=== PATIENT | female | born 1995 | race Caucasian/White ===

== ENCOUNTER 2017-06-28 13:05 | Emergency (ER) | payer OTHER ==
[~2017-06-28] VITALS: Ht 175.3 cm; Wt 75.0 kg
[2017-06-28 13:06] VITALS: BP 108/68
[2017-06-28] MEDS ORDERED: VALI5TAB PO (13:41)
[2017-06-28] MEDS ORDERED: NAPR500T PO (13:41)
== END 2017-06-28 14:07 | disposition home or self-care (01) ==
LOC: M ED 13:05
DX: M54.41 Lumbago with sciatica, right side (principal)

== ENCOUNTER 2017-09-10 13:56 | Emergency (ER) | payer OTHER ==
[2017-09-10] MEDS: diazePAM 5 MG TAB PO (16:04)
[2017-09-10] MEDS: KETOROLAC 60 MG/2 ML VIAL (J1885) IM (16:05)
== END 2017-09-10 19:11 | disposition home or self-care (01) ==
LOC: M ED 13:56
DX: M51.36 Other intervertebral disc degeneration, lumbar region (principal); M48.061 Spinal stenosis, lumbar region without neurogenic claudication; M51.06 Intervertebral disc disorders with myelopathy, lumbar region; M54.30 Sciatica, unspecified side
CPT/HCPCS: J1885

== ENCOUNTER → 2017-11-03 | Outpatient (CLI) | payer OTHER ==
[2017-11-03 15:10] LABS: BASO # 0.1 10^3/uL (0.0-0.2); BASO % 0.7 % (0.0-1.0); EOS # 0.2 10^3/uL (0.0-0.50); EOS % 2.4 % (0.0-3.0); HEMOGLOBIN 11.9 g/dl (12.0-15.5); IMMATURE GRANULOCYTE % 0.1 % (0-3.0); LYMPH # 2.5 10^3/uL (1.5-6.5); LYMPH % 33.5 % (24.0-44.0); MEAN CORPUSCULAR HEMOGLOBIN 25.5 pg (27.0-33.0); MEAN CORPUSCULAR HGB CONC 31.3 g/dl (32.0-36.5); MEAN CORPUSCULAR VOLUME 81.5 fl (80.0-96.0); MONO # 0.4 10^3/uL (0.0-0.8); MONO % 4.7 % (0.0-5.0); NEUTROPHILS # 4.3 10^3/uL (1.8-7.7); NEUTROPHILS % 58.6 % (36.0-66.0); PLATELET COUNT, AUTOMATED 343 10^3/uL (150-450); RED BLOOD COUNT 4.66 10^6/uL (4.00-5.40); RED CELL DISTRIBUTION WIDTH 14.4 % (11.5-14.5); WHITE BLOOD COUNT 7.4 10^3/uL (4.0-10.0)
[2017-11-03 15:20] LABS: INR 0.92; PROTHROMBIN TIME 12.4 SECONDS (12.4-14.5)
[2017-11-03 15:21] LABS: PARTIAL THROMBOPLASTIN TIME 28.1 SECONDS (26.8-37.9)
[2017-11-03 15:30] LABS: COLLAGEN EPINEPHRINE 135 SECONDS (74-162)
[2017-11-03 15:47] LABS: ALBUMIN 4.2 GM/DL (3.2-5.2); ALBUMIN/GLOBULIN RATIO 1.05 (1.00-1.93); ALKALINE PHOSPHATASE 92 U/L (45-117); ALT/SGPT 17 U/L (12-78); ANION GAP 7 MEQ/L (8-16); AST/SGOT 18 U/L (7-37); BILIRUBIN,TOTAL 0.2 MG/DL (0.2-1.0); BLOOD UREA NITROGEN 9 MG/DL (7-18); CALCIUM LEVEL 8.9 MG/DL (8.5-10.1); CARBON DIOXIDE LEVEL 26 MEQ/L (21-32); CHLORIDE LEVEL 109 MEQ/L (98-107); CREATININE FOR GFR 0.79 MG/DL (0.55-1.30); GLOMERULAR FILTRATION RATE > 60.0 (>60); GLUCOSE, FASTING 99 MG/DL (70-100); POTASSIUM SERUM 4.3 MEQ/L (3.5-5.1); SODIUM LEVEL 142 MEQ/L (136-145); TOTAL PROTEIN 8.2 GM/DL (6.4-8.2)
== END ==
LOC: M LAB 14:16
DX: Z01.818 Encounter for other preprocedural examination (principal)
CPT/HCPCS: 71046

== ENCOUNTER 2017-11-14 06:24 | Inpatient (IN) | payer OTHER ==
[2017-11-14 06:46] LABS: CONTROL LINE UCG INT CTR LINE PRESENT; URINE PREG TEST NEGATIVE (NEGATIVE)
[2017-11-14] MEDS: LR 1,000 ML IV ×2 (07:03→11:15)
[2017-11-14] MEDS ORDERED: ROCURONIUM BROMIDE 50 MG/5 ML VIAL As Ordered (08:07)
[2017-11-14] MEDS ORDERED: PROPOFOL 200 MG/20 ML VIAL As Ordered (08:07)
[2017-11-14] MEDS ORDERED: MIDAZOLAM INJ 2 MG/2 ML VIAL (J2250) As Ordered (08:07)
[2017-11-14] MEDS ORDERED: fentaNYL 250 MCG/5 ML INJECTION (J3010) As Ordered (08:07)
[2017-11-14] MEDS ORDERED: LIDOCAINE 2% INJ 100 MG/5 ML SDV (FOR ANES.) As Ordered (08:07)
[2017-11-14] MEDS ORDERED: dexameTHASONE 4 MG/ML 1ML VIAL (J1100) As Ordered (08:07)
[2017-11-14] MEDS ORDERED: PHENYLephrine HCL 500 MCG/5 ML (100MCG/ML) SYRINGE (J2370) As Ordered (08:19)
[2017-11-14] MEDS: THROMBIN SOLN 20,000 UNITS KIT As Ordered (08:58)
[2017-11-14] MEDS ORDERED: ePHEDrine SULFATE 25 MG/5 ML(5MG/ML) SYRINGE As Ordered (09:04)
[2017-11-14] MEDS ORDERED: ONDANSETRON 4MG/2ML VIAL (J2405) As Ordered (10:09)
[2017-11-14] MEDS: BACITRACIN PWD 50,000 UNITS VIAL As Ordered (10:20)
[2017-11-14] MEDS: methylPREDNISolone SUSP 40 MG/ML (DEPO-medrol) VIAL (J1030) As Ordered (10:20)
[2017-11-14] MEDS ORDERED: fentaNYL 100 MCG/2 ML INJECTION (J3010) As Ordered (10:42)
[2017-11-14] MEDS: fentaNYL 100 MCG/2 ML INJECTION (J3010) IV ×8 (10:50→12:05)
[2017-11-14] MEDS ORDERED: METOCLOPRAMIDE INJ 10MG/2ML VIAL (J2765) IV (11:15)
[2017-11-14] MEDS: MEPERIDINE INJ 25 MG/ML VIAL (J2175) IV ×2 (11:30→11:35)
[2017-11-14] MEDS ORDERED: ACETAMINOPHEN TAB 650MG DOSE (2X325MG) PO (11:30)
[2017-11-14] MEDS: ONDANSETRON 4MG/2ML VIAL (J2405) IV ×2 (11:35→16:10)
[2017-11-14] MEDS: PERCOCET 5MG/325MG TAB PO ×2 (11:50→12:20)
[2017-11-14] MEDS: KCL 20MEQ IN D5/0.45NS 1000ML 1,000 ML IV ×2 (13:10→21:32)
[2017-11-14] MEDS: NORCO, ANEXSIA 5/325MG TABLET (HYDROcodone/ACETAMINOPHEN) PO ×2 (13:11→19:46)
[2017-11-14] MEDS: MORPHINE 4 MG/ML 1ML VIAL/SYRINGE (J2270) IV (14:25)
[2017-11-14] MEDS: ceFAZolin SOD 1 GM in D5W MINI-BAG PLUS 50 ML IV ×2 (15:12→19:47)
[2017-11-15] MEDS: NORCO, ANEXSIA 5/325MG TABLET (HYDROcodone/ACETAMINOPHEN) PO ×3 (01:53→14:54)
[2017-11-15] MEDS: ceFAZolin SOD 1 GM in D5W MINI-BAG PLUS 50 ML IV (02:39)
[2017-11-15] MEDS: KCL 20MEQ IN D5/0.45NS 1000ML 1,000 ML IV ×2 (02:41→11:08)
== END 2017-11-15 17:10 | disposition home or self-care (01) | DRG 516 ==
LOC: M OR 06:24 → M MS5PR 13:06
PROC: 01NB0ZZ Release Lumbar Nerve, Open Approach (ICD-10-PCS; principal; 2017-11-14 07:29)
PROC: 01NR0ZZ Release Sacral Nerve, Open Approach (ICD-10-PCS; 2017-11-14 07:29)
DX: M48.062 Spinal stenosis, lumbar region with neurogenic claudication (principal); M47.16 Other spondylosis with myelopathy, lumbar region; M47.812 Spondylosis without myelopathy or radiculopathy, cervical region; M46.1 Sacroiliitis, not elsewhere classified

== ENCOUNTER → 2018-09-29 | Outpatient (REF) | payer OTHER ==
[~2018-09-29] MED LIST: CIPR-250 PO; NAPR-50 PO; NORC1TAB4 PO; NORCOTAB PO; PRED20TA PO; VALI5TAB PO
[2018-09-29 21:24] LABS: CHLAMYDIA DNA AMPLIFICATION NEGATIVE (NEGATIVE); GC DNA AMPLIFICATION NEGATIVE (NEGATIVE)
== END ==
LOC: M SFHCLERA 13:40
PROVIDERS: ATTEND Nurse Practitioner Family
DX: N89.8 Other specified noninflammatory disorders of vagina (principal)

== ENCOUNTER 2019-02-27 09:50 | Emergency (ER) | payer OTHER ==
[~2019-02-27] VITALS: Ht 175.3 cm; Wt 75.0 kg
[~2019-02-27 09:50] MED LIST changes: +HYDR-3715 PO; -NAPR-50 PO; +NAPR-837 PO; -NORC1TAB4 PO; +NORC1TAB7 PO; -NORCOTAB PO
[2019-02-27] MEDS ORDERED: IBUPROFEN 800 MG TAB PO ONE (11:15)
[2019-02-27] MEDS ORDERED: LIDOCAINE 5% (LIDODERM) PATCH TD ONE (11:15)
--- NOTE | 2019-02-27 14:16 | REPVR ---
EXAM: MR Lumbar Spine Without Contrast. EXAM DATE/TIME: 02/27/2019 11:46 AM CLINICAL HISTORY: 23 years old, female; Numbness and weakness; Prior surgery; Surgery date: 6+ months; Surgery type: Laminectomy; Additional info: Numbness, weakness right leg, HX laminectomy TECHNIQUE: Imaging protocol: Multiplanar magnetic resonance images of the lumbar spine without intravenous contrast. COMPARISON: MRI-Spine, L.S. without con 09/10/2017 4:49 PM FINDINGS: Vertebral body heights are intact. Alignment is maintained. The conus is unremarkable in appearance, with its tip at the L1 level. There are fairly similar degrees of disc desiccation indicating intervertebral disc degeneration. The visualized abdominal structures appear unremarkable. L1-2: No significant disc displacement. L2-3: No significant disc displacement. L3-4: Similar broad-based central protrusion superimposed on a small diffuse disc bulge leading to similar, very mild bilateral neural foraminal narrowing without significant spinal stenosis. There is again small fluid in the facet joints. L4-5: Similar diffuse bulge with a central annular tear leading to similar, very mild right and mild left neural foraminal narrowing with very mild narrowing of the left lateral recess, without significant central canal stenosis. There is again small fluid in the facet joints. L5-S1: Interval right-sided laminotomy. Previous central disc extrusion is now a smaller broad-based central protrusion, superimposed on similar diffuse bulge. There is similar, mild bilateral neural foraminal narrowing with decrease, now mild to moderate bilateral lateral recess narrowing, without significant central canal stenosis. There is some heterogeneous material along the right lateral and posterolateral aspects of the thecal sac, which could represent scarring. Any additional scarring is difficult to evaluate without contrast. There is again small fluid in the facet joints. If surgery is considered, recommend level confirmation. IMPRESSION: Multilevel disc desiccation indicating intervertebral disk degeneration with disc displacements as described. Interval right-sided laminotomy at L5-S1 since 09/10/17, with decreased displacement at this level, potentially with some scarring along the right aspect of the thecal sac. The other discs appear fairly similar. Electronically signed by: Randolph Peña On 02/27/2019 14:15:47 PM
[2019-02-27 15:02] VITALS: BP 130/76
[2019-02-27] MEDS ORDERED: **NOTE PATIENT COMMENT** MISC XX SCH (21:00)
--- NOTE | 2019-02-28 10:59 | ED PDOC ---
Post-Departure Follow-Up ft ramu cornelius faxed formal report of mri ls spine for fu Jackie Mackey MD Feb 28, 2019 10:59
== END 2019-02-27 15:01 | disposition home or self-care (01) ==
LOC: M ED 09:50
DX: M51.36 Other intervertebral disc degeneration, lumbar region (principal); M48.061 Spinal stenosis, lumbar region without neurogenic claudication; M54.5 Low back pain; M19.90 Unspecified osteoarthritis, unspecified site; G89.29 Other chronic pain; M54.9 Dorsalgia, unspecified; F41.9 Anxiety disorder, unspecified; J45.909 Unspecified asthma, uncomplicated

== ENCOUNTER → 2019-04-24 | Outpatient (REF) | payer OTHER | LOC: M SFHCLERA 13:43 | PROVIDERS: ATTEND Nurse Practitioner Family | DX: J02.9 Acute pharyngitis, unspecified (principal) ==

== ENCOUNTER → 2019-08-29 | Outpatient (REF) | payer OTHER | LOC: M SFHCLERA 20:55 | PROVIDERS: ATTEND Physician Assistant | DX: R50.9 Fever, unspecified (principal) ==

== ENCOUNTER → 2021-02-11 | Outpatient (CLI) | payer OTHER, SELFPAY ==
[~2021-02-11] MED LIST changes: +ISOVUE-370 76% 100ML VIAL As Ordered ONE
== END ==
LOC: M RADPRO 12:16
PROVIDERS: ATTEND Obstetrics & Gynecology
DX: N97.9 Female infertility, unspecified (principal); Z53.8 Procedure and treatment not carried out for other reasons

== ENCOUNTER → 2021-03-09 | Outpatient (CLI) | payer OTHER ==
--- NOTE | 2021-03-09 13:10 | REP ---
INDICATION: INFERTILITY. COMPARISON: None. TECHNIQUE: Cervix was catheterized by the referring clinician, who also injected contrast. I performed fluoroscopy. FINDINGS: No persistent filling defect is seen in the endometrial cavity. No contour abnormality is seen. The fallopian tubes opacify well and are not dilated. There is bilateral free intraperitoneal spillage of contrast material indicating bilateral fallopian tube patency. IMPRESSION: Bilateral fallopian tube patency. Fluoroscopy time 0.5 minutes. <Electronically signed by Romeo De La Cruz > 03/09/21 [id number]
== END ==
LOC: M RADPRO 12:02
PROVIDERS: ATTEND Obstetrics & Gynecology
DX: N97.9 Female infertility, unspecified (principal)
CPT/HCPCS: 58340; 74740; Q9967

== ENCOUNTER → 2021-04-30 | Outpatient (CLI) | payer OTHER ==
[~2021-04-30] MED LIST changes: -ISOVUE-370 76% 100ML VIAL As Ordered ONE
--- NOTE | 2021-05-02 07:21 | REP ---
INDICATION: FEMALE INFERTILITY COMPARISON: None. TECHNIQUE: Transabdominal pelvic ultrasound followed by transvaginal examination for better evaluation of the endometrium and adnexa with color Doppler evaluation of the ovaries. FINDINGS: Bladder is unremarkable and measures 9.6 x 3.0 x 7.6 cm. Normal retroflexed uterus measures 7.7 x 4.5 x 5.9 cm. The endometrial complex measures 3.0 mm thickness. Few incidental subcentimeter nabothian cysts in the lower uterine segment noted. Bilateral ovaries are normal in appearance and vascularity without evidence for torsion. Multiple bilateral follicles measuring up to 8.4 mm noted bilaterally. Right ovary measures 3.2 x 2.3 x 2.1 cm; R I = 0.67. Left ovary measures 2.9 x 2.8 x 2.5 cm; R I = 0.61. No pelvic fluid or adnexal mass lesion. IMPRESSION: Relatively normal pelvic ultrasound as described above. <Electronically signed by Arsalan Jacob > 05/02/21 [id number]
== END ==
LOC: M WHC 13:01
PROVIDERS: ATTEND Obstetrics & Gynecology
DX: N97.9 Female infertility, unspecified (principal)

== ENCOUNTER → 2021-11-29 | Outpatient (CLI) | payer OTHER | LOC: M PLALAB 10:01 | PROVIDERS: ATTEND Advanced Practice Midwife | DX: O20.0 Threatened abortion (principal) ==

== ENCOUNTER → 2021-12-01 | Outpatient (CLI) | payer OTHER | LOC: M PLALAB 09:17 | PROVIDERS: ATTEND Advanced Practice Midwife | DX: O20.0 Threatened abortion (principal); Z3A.00 Weeks of gestation of pregnancy not specified ==

== ENCOUNTER → 2021-12-08 | Outpatient (CLI) | payer OTHER | LOC: M PLALAB 11:52 | PROVIDERS: ATTEND Advanced Practice Midwife | DX: O20.9 Hemorrhage in early pregnancy, unspecified (principal) ==

== ENCOUNTER → 2021-12-10 | Outpatient (CLI) | payer OTHER | LOC: M PLALAB 12:25 | PROVIDERS: ATTEND Advanced Practice Midwife | DX: O20.9 Hemorrhage in early pregnancy, unspecified (principal) ==

== ENCOUNTER → 2021-12-22 | Outpatient (CLI) | payer OTHER | LOC: M WHC 10:10 | PROVIDERS: ATTEND Advanced Practice Midwife | DX: O20.9 Hemorrhage in early pregnancy, unspecified (principal) ==

== ENCOUNTER → 2022-01-17 | Outpatient (CLI) | payer OTHER ==
[2022-01-17 13:27] LABS: HEMATOCRIT 34.7 % (36.0-47.0); HEMOGLOBIN 10.9 g/dl (12.0-15.5); MEAN CORPUSCULAR HEMOGLOBIN 24.4 pg (27.0-33.0); MEAN CORPUSCULAR HGB CONC 31.4 g/dl (32.0-36.5); MEAN CORPUSCULAR VOLUME 77.8 fl (80.0-96.0); PLATELET COUNT, AUTOMATED 293 10^3/uL (150-450); RED BLOOD COUNT 4.46 10^6/uL (4.00-5.40); WHITE BLOOD COUNT 10.4 10^3/uL (4.0-10.0)
[2022-01-17 15:06] LABS: GC DNA AMPLIFICATION NEGATIVE (NEGATIVE)
[2022-01-17 19:20] LABS: HEPATITIS C VIRUS ABY INDEX 0.1 INDEX (<0.8); HIV 1&2 SCREEN CENTAUR NEGATIVE (NEGATIVE)
== END ==
LOC: M PLALAB 11:47
PROVIDERS: ATTEND Obstetrics & Gynecology
DX: Z36.9 Encounter for antenatal screening, unspecified (principal); Z3A.09 9 weeks gestation of pregnancy

== ENCOUNTER → 2022-01-20 | Outpatient (CLI) | payer OTHER ==
[2022-01-20 17:46] LABS: PERCENT SATURATION 6.2 % (13.2-45.0)
[2022-01-26 17:10] LABS: TRANSFERRIN 431 mg/dL (192-364)
== END ==
LOC: M PLALAB 14:44
PROVIDERS: ATTEND Obstetrics & Gynecology
DX: D64.9 Anemia, unspecified (principal)

== ENCOUNTER 2022-01-21 17:12 | Emergency (ER) | payer OTHER ==
[~2022-01-21] VITALS: Ht 175.3 cm; Wt 96.8 kg
[2022-01-21 18:15] LABS: BASO # 0.1 10^3/uL (0.0-0.2); BASO % 0.5 % (0.0-1.0); EOS # 0.3 10^3/uL (0.0-0.5); EOS % 2.1 % (0.0-3.0); HEMATOCRIT 34.3 % (36.0-47.0); HEMOGLOBIN 11.1 g/dl (12.0-15.5); LYMPH # 2.5 10^3/uL (1.5-5.0); LYMPH % 20.9 % (24.0-44.0); MEAN CORPUSCULAR HEMOGLOBIN 25.3 pg (27.0-33.0); MEAN CORPUSCULAR HGB CONC 32.4 g/dl (32.0-36.5); MEAN CORPUSCULAR VOLUME 78.1 fl (80.0-96.0); MONO # 0.6 10^3/uL (0.0-0.8); MONO % 4.7 % (2.0-8.0); NEUTROPHILS # 8.5 10^3/uL (1.5-8.5); NEUTROPHILS % 71.5 % (36.0-66.0); PLATELET COUNT, AUTOMATED 307 10^3/uL (150-450); RED BLOOD COUNT 4.39 10^6/uL (4.00-5.40); WHITE BLOOD COUNT 11.9 10^3/uL (4.0-10.0)
[2022-01-21 18:30] LABS: APPEARANCE, URINE HAZY (CLEAR); BACTERIA, URINE AUTO NEGATIVE (NEGATIVE); BILIRUBIN, URINE AUTO NEGATIVE (NEGATIVE); BLOOD, URINE BLOOD 3+ (NEGATIVE); COLOR, URINE YELLOW (YELLOW); GLUCOSE, URINE (UA) AUTO NEGATIVE (NEGATIVE); KETONE, URINE AUTO TRACE mg/dL (NEGATIVE); LEUKOCYTE ESTERASE, URINE AUTO 2+ (NEGATIVE); MUCUS, URINE SMALL (NEGATIVE); NITRITE, URINE AUTO NEGATIVE (NEGATIVE); PROTEIN, URINE AUTO 1+ mg/dL (NEGATIVE); RBC, URINE AUTO 8 /HPF (0-3); SPECIFIC GRAVITY URINE AUTO 1.028 (1.002-1.035); SQUAMOUS EPITHELIAL CELL UR AU 14 /HPF (0-6); UROBILINOGEN, URINE AUTO 0.2 mg/dL (0.0-2.0); WBC, URINE AUTO 25 /HPF (0-3)
[2022-01-21 18:33] LABS: BLOOD UREA NITROGEN 9 MG/DL (7-18); CALCIUM LEVEL 9.5 MG/DL (8.5-10.1); CARBON DIOXIDE LEVEL 23 MEQ/L (21-32); CHLORIDE LEVEL 107 MEQ/L (98-107); CREATININE FOR GFR 0.71 MG/DL (0.55-1.30); GLOMERULAR FILTRATION RATE > 60.0 (>60); GLUCOSE, FASTING 99 MG/DL (70-100); POTASSIUM SERUM 3.9 MEQ/L (3.5-5.1); SODIUM LEVEL 140 MEQ/L (136-145)
[2022-01-21 21:21] LABS: HCG, SERUM QUANTITATIVE 156592 MIU/ML
[2022-01-21 22:49] VITALS: BP 143/84
== END 2022-01-21 23:40 | disposition home or self-care (01) ==
LOC: M ED 17:12
DX: O26.852 Spotting complicating pregnancy, second trimester (principal); N93.9 Abnormal uterine and vaginal bleeding, unspecified; Z3A.14 14 weeks gestation of pregnancy

== ENCOUNTER 2022-01-29 09:31 | Emergency (ER) | payer OTHER ==
[~2022-01-29] VITALS: Ht 175.3 cm; Wt 95.5 kg
[2022-01-29] MEDS ORDERED: MULTTAB20 PO (09:37)
[2022-01-29 10:30] LABS: BASO # 0.1 10^3/uL (0.0-0.2); BASO % 0.4 % (0.0-1.0); EOS # 0.3 10^3/uL (0.0-0.5); HEMATOCRIT 36.5 % (36.0-47.0); LYMPH # 1.9 10^3/uL (1.5-5.0); LYMPH % 13.1 % (24.0-44.0); MEAN CORPUSCULAR HEMOGLOBIN 25.2 pg (27.0-33.0); MEAN CORPUSCULAR HGB CONC 32.9 g/dl (32.0-36.5); MEAN CORPUSCULAR VOLUME 76.5 fl (80.0-96.0); MONO # 0.6 10^3/uL (0.0-0.8); NEUTROPHILS # 11.8 10^3/uL (1.5-8.5); PLATELET COUNT, AUTOMATED 292 10^3/uL (150-450); RED BLOOD COUNT 4.77 10^6/uL (4.00-5.40); WHITE BLOOD COUNT 14.8 10^3/uL (4.0-10.0)
[2022-01-29 11:28] VITALS: BP 121/77
== END 2022-01-29 11:33 | disposition home or self-care (01) ==
LOC: M ED 09:31
DX: O46.8X2 Other antepartum hemorrhage, second trimester (principal); O30.042 Twin pregnancy, dichorionic/diamniotic, second trimester; Z3A.14 14 weeks gestation of pregnancy

== ENCOUNTER 2022-01-29 14:53 | Emergency (ER) | payer OTHER ==
[~2022-01-29] VITALS: Ht 175.3 cm; Wt 90.9 kg
[~2022-01-29 14:53] MED LIST changes: +MULTTAB20 PO
[2022-01-29] MEDS ORDERED: MORPHINE 4 MG/ML 1ML VIAL/SYRINGE IV ONE (16:20)
[2022-01-29] MEDS ORDERED: NS 1,000 ML IV ONE (16:20)
[2022-01-29 17:21] LABS: HEMATOCRIT 35.2 % (36.0-47.0); HEMOGLOBIN 11.6 g/dl (12.0-15.5); MEAN CORPUSCULAR HEMOGLOBIN 25.2 pg (27.0-33.0); MEAN CORPUSCULAR VOLUME 76.5 fl (80.0-96.0); PLATELET COUNT, AUTOMATED 260 10^3/uL (150-450); WHITE BLOOD COUNT 16.7 10^3/uL (4.0-10.0)
[2022-01-29 20:14] VITALS: BP 131/77
== END 2022-01-29 20:20 | disposition home or self-care (01) ==
LOC: M ED 14:53
DX: O03.9 Complete or unspecified spontaneous abortion without complication (principal); N39.9 Disorder of urinary system, unspecified
CPT/HCPCS: 76801; 85027; 88305; 96361; 96374; 99284; J2270

== ENCOUNTER → 2022-04-27 | Outpatient (CLI) | payer OTHER | LOC: M PLALAB 13:21 | PROVIDERS: ATTEND Advanced Practice Midwife | DX: O20.0 Threatened abortion (principal); Z3A.00 Weeks of gestation of pregnancy not specified ==

== ENCOUNTER 2022-04-29 21:01 | Emergency (ER) | payer OTHER ==
[~2022-04-29] VITALS: Ht 175.3 cm; Wt 81.8 kg
[2022-04-29 22:36] LABS: BASO # 0.1 10^3/uL (0.0-0.2); BASO % 0.8 % (0.0-1.0); EOS # 0.6 10^3/uL (0.0-0.5); EOS % 6.5 % (0.0-3.0); HEMATOCRIT 36.7 % (36.0-47.0); HEMOGLOBIN 11.3 g/dl (12.0-15.5); LYMPH % 29.9 % (24.0-44.0); MEAN CORPUSCULAR HEMOGLOBIN 24.1 pg (27.0-33.0); MEAN CORPUSCULAR HGB CONC 30.8 g/dl (32.0-36.5); MEAN CORPUSCULAR VOLUME 78.4 fl (80.0-96.0); MONO # 0.6 10^3/uL (0.0-0.8); MONO % 6.2 % (2.0-8.0); NEUTROPHILS # 5.6 10^3/uL (1.5-8.5); NEUTROPHILS % 56.3 % (36.0-66.0); PLATELET COUNT, AUTOMATED 322 10^3/uL (150-450); RED BLOOD COUNT 4.68 10^6/uL (4.00-5.40); WHITE BLOOD COUNT 9.9 10^3/uL (4.0-10.0)
[2022-04-29 23:03] LABS: BLOOD UREA NITROGEN 16 MG/DL (7-18); CALCIUM LEVEL 8.5 MG/DL (8.5-10.1); CARBON DIOXIDE LEVEL 23 MEQ/L (21-32); CHLORIDE LEVEL 107 MEQ/L (98-107); CREATININE FOR GFR 0.85 MG/DL (0.55-1.30); GLOMERULAR FILTRATION RATE > 60.0 (>60); GLUCOSE, FASTING 90 MG/DL (70-100); HCG, SERUM QUANTITATIVE 21 MIU/ML; POTASSIUM SERUM 3.8 MEQ/L (3.5-5.1); SODIUM LEVEL 136 MEQ/L (136-145)
[2022-04-30 02:31] VITALS: BP 125/72
== END 2022-04-30 02:32 | disposition home or self-care (01) ==
LOC: M ED 21:01
DX: O03.9 Complete or unspecified spontaneous abortion without complication (principal); J45.909 Unspecified asthma, uncomplicated; F41.9 Anxiety disorder, unspecified; M54.50 Low back pain, unspecified; Z79.810 Long term (current) use of selective estrogen receptor modulators (SERMs)

== ENCOUNTER → 2022-04-29 | Outpatient (CLI) | payer OTHER | LOC: M PLALAB 11:47 | PROVIDERS: ATTEND Advanced Practice Midwife | DX: O20.0 Threatened abortion (principal) ==

== ENCOUNTER 2022-05-18 07:21 | Emergency (ER) | payer OTHER ==
[~2022-05-18] VITALS: Ht 175.3 cm; Wt 97.6 kg
[2022-05-18] MEDS ORDERED: LIDO1PAD TOP (10:00)
[2022-05-18 10:04] VITALS: BP 113/63
== END 2022-05-18 10:12 | disposition home or self-care (01) ==
LOC: M ED 07:21
DX: M47.816 Spondylosis without myelopathy or radiculopathy, lumbar region (principal); M47.817 Spondylosis without myelopathy or radiculopathy, lumbosacral region; M51.36 Other intervertebral disc degeneration, lumbar region; J45.909 Unspecified asthma, uncomplicated

== ENCOUNTER → 2023-09-02 | Outpatient (REF) | payer OTHER ==
[~2023-09-02] MED LIST changes: +LIDO1PAD TOP
== END ==
LOC: M LAB REF 17:33
PROVIDERS: ATTEND Physician Assistant Medical
DX: J02.9 Acute pharyngitis, unspecified (principal)

== ENCOUNTER → 2024-03-07 | Outpatient (CLI) | payer OTHER ==
[2024-03-07 15:50] LABS: HEMATOCRIT 37.7 % (36.0-47.0); HEMOGLOBIN 11.9 g/dl (12.0-15.5); MEAN CORPUSCULAR HEMOGLOBIN 25.1 pg (27.0-33.0); MEAN CORPUSCULAR HGB CONC 31.6 g/dl (32.0-36.5); MEAN CORPUSCULAR VOLUME 79.5 fl (80.0-96.0); PLATELET COUNT, AUTOMATED 365 10^3/uL (150-450); RED BLOOD COUNT 4.74 10^6/uL (4.00-5.40); WHITE BLOOD COUNT 7.8 10^3/uL (4.0-10.0)
[2024-03-07 15:51] LABS: HEMOGLOBIN A1c 5.2 % (4.0-6.0)
[2024-03-07 16:13] LABS: PROLACTIN 7.23 NG/ML; THYROID STIMULATING HORMONE 2.738 uIU/ML (0.55-4.78)
[2024-03-07 16:16] LABS: HCG, SERUM QUANTITATIVE < 2.6 MIU/ML (<4.2)
[2024-03-07 16:18] LABS: ALBUMIN 3.9 G/DL (3.2-5.2); ALKALINE PHOSPHATASE 78 U/L (46-116); ALT/SGPT 18 U/L (7.0-40); AST/SGOT 12 U/L (<34); BILIRUBIN,TOTAL 0.4 MG/DL (0.3-1.2); BLOOD UREA NITROGEN 12 MG/DL (9-23); CALCIUM LEVEL 9.2 MG/DL (8.5-10.1); CARBON DIOXIDE LEVEL 26 MMOL/L (20-31); CHLORIDE LEVEL 108 MMOL/L (98-107); GLOMERULAR FILTRATION RATE > 60.0 (>60); GLUCOSE, FASTING 76 MG/DL (60-100); POTASSIUM SERUM 4.3 MMOL/L (3.5-5.1); SODIUM LEVEL 139 MMOL/L (136-145); TOTAL PROTEIN 7.7 G/DL (5.7-8.2)
[2024-03-07 16:20] LABS: TESTOSTERONE 26 NG/DL (14-76)
[2024-03-07 16:23] LABS: HEPATITIS B SURFACE ANTIGEN NEGATIVE (NEGATIVE)
[2024-03-07 16:36] LABS: HIV 1&2 SCREEN NEGATIVE (NEGATIVE)
[2024-03-07 16:44] LABS: HEPATITIS C VIRUS ABY INDEX 0.03 INDEX (<0.8)
[2024-03-12 22:23] LABS: ANTI MULLERIAN HORMONE 2.82 ng/mL (0.69-13.39)
== END ==
LOC: M PLALAB 12:26
PROVIDERS: ATTEND Obstetrics & Gynecology Reproductive Endocrinology
DX: Z31.41 Encounter for fertility testing (principal)

== ENCOUNTER 2025-02-22 14:20 | Inpatient (IN) | payer OTHER ==
[~2025-02-22] VITALS: Ht 175.3 cm; Wt 105.1 kg
[2025-02-22] VITALS (26 sets, daily range): BP systolic 121–181; BP diastolic 66–96
[2025-02-22] MEDS ORDERED: VENTAER INH (14:42)
[2025-02-22] MEDS ORDERED: PRENTAB9 PO (14:42)
[2025-02-22] MEDS ORDERED: HOME MED LIST COMPLETE! XX SCH (14:45)
[2025-02-22] MEDS ORDERED: LR 1,000 ML IV SCH (16:45)
[2025-02-22] MEDS ORDERED: CARBOPROST TROMETHAMINE 250 MCG/ML AMP IM PRN (16:45)
[2025-02-22] MEDS ORDERED: TRANEXAMIC ACID INJection 1,000 MG in NS 100 ML IV PRN (16:45)
[2025-02-22] MEDS ORDERED: OXYTOCIN INJ 10UNITS/ML 1ML VIAL IV PRN (16:45)
[2025-02-22] MEDS ORDERED: OXYTOCIN INJ 10UNITS/ML 1ML VIAL IM PRN (16:45)
[2025-02-22] MEDS ORDERED: LIDOCAINE 1% MDV 20 ML VIAL INFIL PRN (16:45)
[2025-02-22] MEDS ORDERED: METHYLERGONOVINE MALEATE 0.2 MG/ML 1 ML VIAL IM PRN (16:45)
[2025-02-22] MEDS ORDERED: OXYTOCIN DRIP 30 UNITS in IV 1 EA IV PRN ×3 (16:45)
[2025-02-22] MEDS: LACTATED RINGER'S 1000 ML IV STA (17:18)
[2025-02-22] MEDS: PENICILLIN G POTASSIUM 5 MU IV 5 MU in DEXTROSE 5% (D5W) MINI-BAG PLU 100 ML IV STA (17:27)
[2025-02-22 17:44] LABS: PLATELET COUNT, AUTOMATED 316 10^3/uL (150-450)
[2025-02-22 18:38] LABS: HIV 1&2 SCREEN NEGATIVE (NEGATIVE)
[2025-02-22 18:47] LABS: HEPATITIS C VIRUS ABY INDEX < 0.02 INDEX (<0.8)
[2025-02-22] MEDS: LR 1,000 ML IV SCH (18:49)
[2025-02-22] MEDS ORDERED: ONDANSETRON 4MG 2ML VIAL IV PRN (20:40)
[2025-02-22] MEDS ORDERED: LR 500 ML IV PRN (20:40)
[2025-02-22] MEDS ORDERED: EPIDURAL/PCA KEYS XX PRN (20:40)
[2025-02-22] MEDS ORDERED: diphenhydrAMINE 50 MG/ML VIAL IV PRN (20:40)
[2025-02-22] MEDS ORDERED: NALOXONE INJ 0.4 MG/1 ML VIAL IV PRN (20:40)
[2025-02-22] MEDS: FENTANYL/ROPIVACAINE/NACL BAG 100 ML EPIDURAL SCH (21:13)
[2025-02-22] MEDS: FAMOTIDINE 20 MG TAB PO ONE (22:09)
[2025-02-22] MEDS: PEN G POT 3,000,000 UNIT/50 ML 3,000,000 UNIT in IV 1 EA IV SCH (22:10)
[2025-02-22] MEDS: OXYTOCIN DRIP 30 UNITS in IV 1 EA IV SCH (23:20)
[2025-02-23] VITALS (12 sets, daily range): BP systolic 130–163; BP diastolic 74–90; O2SAT 97–100
[2025-02-23] MEDS: ceFAZolin SODIUM 2 GM in DEXTROSE 5% (D5W) ADV/MINI-BAG 50 ML IV ONE (03:40)
[2025-02-23 03:47] LABS: CORD GAS ABE A -6.6; CORD GAS ABE V -5.3; CORD GAS HCO3 A 22.7 MMOL/L; CORD GAS HCO3 V 20.3 MMOL/L; CORD GAS O2 SAT A 36.5 %; CORD GAS O2 SAT V 66.0 %; CORD GAS PCO2 A 60.2 mmHg; CORD GAS PCO2 V 40.0 mmHg; CORD GAS PH A 7.195 UNITS; CORD GAS PH V 7.323 UNITS; CORD GAS PO2 A 20.4 mmHg; CORD GAS PO2 V 29.0 mmHg; CORD GAS SBC A 17.7 MMOL/L; CORD GAS SBC V 19.4 MMOL/L; CORD GAS TCO2 A 24.6 MMOL/L; CORD GAS TCO2 V 21.5 MMOL/L
[2025-02-23] MEDS ORDERED: RHOGAM 300MCG (1500IU) INJ IM SCH (03:55)
[2025-02-23] MEDS ORDERED: ANUSOL HC CREAM 30 GM TOP PRN (03:55)
[2025-02-23] MEDS ORDERED: ACETAMINOPHEN 500 MG TAB PO PRN (03:55)
[2025-02-23] MEDS ORDERED: MOM 30 ML SUSPENSION UDC PO PRN (03:55)
[2025-02-23] MEDS ORDERED: METHYLERGONOVINE MALEATE 0.2 MG TAB PO PRN (03:55)
[2025-02-23] MEDS ORDERED: IBUPROFEN 800 MG TAB PO PRN (03:55)
[2025-02-23] MEDS ORDERED: DIBUCAINE 1% OINTMENT 30 GM TOP PRN (03:55)
[2025-02-23] MEDS: PRENATAL VITAMINS CHEWABLE TABLET PO SCH (08:21)
[2025-02-24 12:00] VITALS: BP 140/85; O2SAT 98
[2025-02-24 18:00] VITALS: BP 138/80; O2SAT 98
[2025-02-24 22:00] VITALS: BP 122/78; O2SAT 98
[2025-02-25 01:49] VITALS: BP 122/78; O2SAT 97
[2025-02-25 05:56] VITALS: BP 134/74; O2SAT 98
[2025-02-25] MEDS: DOCUSATE SODIUM 100 MG CAPSULE PO PRN (08:05)
[2025-02-25] MEDS ORDERED: MEASLES,MUMPS,RUBELLA VACCINE INJ (MMR-II) SC.IMMUN ONE (09:00)
[2025-02-25] MEDS ORDERED: IBUP80TA PO (10:12)
[2025-02-25] MEDS ORDERED: ACET-683 PO (10:12)
== END 2025-02-25 16:15 | disposition home or self-care (01) | DRG 807 ==
LOC: M LDO 14:20 → M LDI 16:44 → M OBS 02-23 06:12
PROVIDERS: ADMIT Obstetrics & Gynecology; ATTEND Obstetrics & Gynecology
PROC: 10907ZC Drainage of Amniotic Fluid, Therapeutic from Products of Conception, Via Natural or Artificial Opening (ICD-10-PCS; 2025-02-22)
PROC: 10E0XZZ Delivery of Products of Conception, External Approach (ICD-10-PCS; 2025-02-23)
PROC: 10D17Z9 Manual Extraction of Products of Conception, Retained, Via Natural or Artificial Opening (ICD-10-PCS; principal; 2025-02-24)
PROC: 0HQ9XZZ Repair Perineum Skin, External Approach (ICD-10-PCS; 2025-02-24)
DX: O99.824 Streptococcus B carrier state complicating childbirth (principal); Z37.0 Single live birth; Z3A.39 39 weeks gestation of pregnancy; O73.0 Retained placenta without hemorrhage; O69.89X0 Labor and delivery complicated by other cord complications, not applicable or unspecified; O70.0 First degree perineal laceration during delivery